=== PATIENT | male | born 1970 | race Caucasian/White ===

== ENCOUNTER 2016-11-29 12:07 | Emergency (ER) | payer OTHER ==
[~2016-11-29] VITALS: Ht 190.5 cm; Wt 102.1 kg
[2016-11-29 12:07] VITALS: BP 164/98
[~2016-11-29 12:07] MED LIST: NOHOMEMEDICATIONS
[2016-11-29] MEDS ORDERED: NORCO 5-325 TA1 EACH PO (12:50)
[2016-11-29] MEDS ORDERED: CIPROFLOXIN HC2.5 M1 OPHTHALMIC (12:52)
== END 2016-11-29 13:04 | disposition home or self-care (01) ==
LOC: ER 12:07
DX: S05.02XA Injury of conjunctiva and corneal abrasion without foreign body, left eye, initial encounter (principal); F17.210 Nicotine dependence, cigarettes, uncomplicated; F10.99 Alcohol use, unspecified with unspecified alcohol-induced disorder; X58.XXXA Exposure to other specified factors, initial encounter; Y93.89 Activity, other specified; Y92.89 Other specified places as the place of occurrence of the external cause; Y99.8 Other external cause status

== ENCOUNTER 2017-01-13 10:47 | Emergency (ER) | payer OTHER ==
[~2017-01-13] VITALS: Ht 190.5 cm; Wt 99.8 kg
[~2017-01-13 10:47] MED LIST changes: +CIPROFLOXIN HC2.5 M1 OPHTHALMIC; +NORCO 5-325 TA1 EACH PO
[2017-01-13] MEDS ORDERED: CIPROFLOXIN HC2.5 M1 OPHTHALMIC (11:43)
[2017-01-13] MEDS ORDERED: ERYTHROMYCIN E3.5 G3 OPHTHALMIC (11:43)
[2017-01-13 12:08] VITALS: BP 148/82
== END 2017-01-13 12:09 | disposition home or self-care (01) ==
LOC: ER 10:47
DX: H16.002 Unspecified corneal ulcer, left eye (principal); F17.210 Nicotine dependence, cigarettes, uncomplicated; F10.99 Alcohol use, unspecified with unspecified alcohol-induced disorder

== ENCOUNTER 2017-10-28 09:46 | Emergency (ER) | payer OTHER ==
[~2017-10-28] VITALS: Ht 190.5 cm; Wt 99.8 kg
[~2017-10-28 09:46] MED LIST changes: +ERYTHROMYCIN E3.5 G3 OPHTHALMIC
== END 2017-10-28 11:37 | disposition home or self-care (01) ==
LOC: ER 09:46
DX: S05.02XA Injury of conjunctiva and corneal abrasion without foreign body, left eye, initial encounter (principal); H10.32 Unspecified acute conjunctivitis, left eye; F17.210 Nicotine dependence, cigarettes, uncomplicated; X58.XXXA Exposure to other specified factors, initial encounter

== ENCOUNTER 2018-12-06 21:32 | Inpatient (IN) | payer OTHER ==
[~2018-12-06] VITALS: Ht 185.4 cm; Wt 68.5 kg
[2018-12-06 22:12] VITALS: BP 118/79
[2018-12-06] MEDS ORDERED: METFORMIN HCL500 MG PO (22:17)
[2018-12-06 22:28] LABS: BE(vivo) 2.1 mmol/L (-2 to +3); HCO3 23.2 mmol/L (22.0-26.0); PCO2 28.9 mmHg (35.0-45.0); PO2 93.7 mmHg (80.0-100.0); pH 7.523 (7.360-7.450); sO2 97.9 % (92.0-98.0)
--- NOTE | 2018-12-06 23:37 | NUR ---
LAB CONTACTED, BLOOD WORK IS THERE
[2018-12-06 23:42] LABS: HEMATOCRIT 54.5 % (42.0-52.0); HEMOGLOBIN 17.9 gm/dL (14.0-18.0); MCH 27.2 pg (26.0-34.0); MCHC 32.9 g/dL (28.0-37.0); MCV 82.7 fL (80.0-100.0); PLATELET COUNT 501 thou/uL (150-400); RBC 6.59 mil/uL (4.50-6.00); RDW 16.1 % (10.5-14.5)
[2018-12-06 23:46] LABS: CALCIUM 9.7 mg/dL (8.5-10.1); CREATININE 3.1 mg/dL (0.7-1.3); POTASSIUM 3.7 mmol/L (3.5-5.1)
[2018-12-06 23:52] LABS: ALBUMIN 4.7 g/dL (3.4-5.0); TOTAL BILIRUBIN 0.9 mg/dL (<0.1-1.0); TOTAL PROTEIN 9.9 g/dL (6.4-8.2)
[2018-12-07] VITALS (17 sets, daily range): BP systolic 116–142; BP diastolic 59–94
[2018-12-07 00:30] LABS: ABSOLUTE NEUTROPHILS 23.3 thou/uL (1.4-8.2)
[2018-12-07 00:31] LABS: LARGE PLATELETS FEW; PLATELET ESTIMATE MARKEDLY INCREASED
[2018-12-07 04:19] LABS: HEMATOCRIT 51.9 % (42.0-52.0); HEMOGLOBIN 17.6 gm/dL (14.0-18.0); MCH 27.7 pg (26.0-34.0); MCHC 33.9 g/dL (28.0-37.0); MCV 81.6 fL (80.0-100.0); RBC 6.35 mil/uL (4.50-6.00); RDW 15.7 % (10.5-14.5); WBC 28.8 thou/uL (4.0-11.0)
[2018-12-07 04:25] LABS: CALCIUM 8.5 mg/dL (8.5-10.1); POTASSIUM 3.7 mmol/L (3.5-5.1)
--- NOTE | 2018-12-07 04:33 | NUR ---
Pt arrived on unit at about 0255. alert and oriented . vital signs stable. pt c/o abdominal pain, nausea and vomiting. denies chest pain or SOA. assessments as documented. zofran and morphine given. Will continue to follow poc.
[2018-12-07 06:34] LABS: URINE BLOOD 2+ (Negative); URINE CLARITY CLOUDY; URINE COLOR YELLOW; URINE GLUCOSE-RANDOM* NEGATIVE (Negative); URINE KETONES 2+ (Negative); URINE LEUKOCYTES-REFLEX NEGATIVE (Negative); URINE NITRITE-REFLEX NEGATIVE (Negative); URINE PROTEIN (DIPSTICK) 2+ (Negative); URINE SPECIFIC GRAVITY >= 1.030 (1.005-1.035); URINE UROBILINOGEN 0.2 E.U./dl (0.2-1.0)
[2018-12-07 06:38] LABS: ICTOTEST (BILI CONFIRMATORY) Negative (Negative); URINE BILIRUBIN NEGATIVE (Negative)
[2018-12-07 06:49] LABS: BACTERIA-REFLEX 1-9 Few /HPF (None Seen); CASTS None Seen /LPF (None Seen); CRYSTALS None Seen /LPF (None Seen); SQUAMOUS 0-3 Few /LPF (0-3); URINE RBC 0-2 Rare /HPF (0-2); URINE WBC-REFLEX None Seen /HPF (0-5)
[2018-12-07 09:06] LABS: MAGNESIUM 1.8 mg/dL (1.8-2.4); PHOSPHORUS 4.9 mg/dL (2.5-4.9)
[2018-12-07 09:07] LABS: CALCIUM 8.6 mg/dL (8.5-10.1); CREATININE 3.7 mg/dL (0.7-1.3); PHOSPHORUS 4.8 mg/dL (2.5-4.9); POTASSIUM 3.7 mmol/L (3.5-5.1)
--- NOTE | 2018-12-07 10:27 | EKG ---
[address] [employer] [place] [address] ELECTROCARDIOGRAM REPORT Name: THOMAS SMILEY Room #: 210-P ADM IN M.R.#: [id number] ������������������ Admission: 12/07/18 ������������������ Attend Phys: Karl Contreras MD Discharge: ������������������ Date of : 70 Report #: [id number] ����������������������������������������������������������������� [id number] THIS REPORT FOR: //name// [facility] ED Test Date: 2018-12-06 Test Time: 22:01:13 Pat Name: THOMAS SMILEY Department: Room: 210 Gender: M Pleater: WG : 1970 Requested By: Thomas Carty Order Number: [id number] MD: Kwabena Nielsen Measurements Intervals Lackey Rate: 107 P: 75 MD: 115 QRS: -37 QRSD: 86 T: 80 QT: 345 QTc: 461 Interpretive Statements Sinus tachycardia Left anterior fascicular block Abnormal R-wave progression, late transition nonspecific ST segment abnormality No previous ECG available for comparison Electronically Signed On 12-07-2018 10:27:18 CDT by Kwabena Nielsen [email or web address] ��������������������������������������������� <ELECTRONICALLY SIGNED> ���������������������������������������� By: Kwabena Nielsen MD, [facility] ��������������������������������������������� 12/07/18 1027 00 00 Kwabena Nielsen MD, FACC /EPI
--- NOTE | 2018-12-07 11:18 | NUR ---
ASSESSMENT CHARTED - MEDS PER EDGARDO - IN TO SEE PATIENT - TRANSFER TO THE ICU ORDERED. PT GIVEN 1000 CC BOLUS ORDERED - PT TO CT SCAN ORDERED. IV X 2 STARTED IN THE LEFT FORARM SO ACCESS AVAIALABLE FOR FLUIDS TO BE STARTED - ACCESS IN RAC WHEN ARM BENT DID NOT ALLOW FOR FLUIDS TO INFUSE. BS THIS AM 270 COVERED PER SLIDING SCALE - 193 AT TIME OF TRANSFER - REPORT CALLED TO LAY IN THE ICU - PT TRANSFERED VIA BED WITH BELONGINGS.
--- NOTE | 2018-12-07 11:20 | NUR ---
REPORT RECEIVED FROM PREVIOUS RN. PT TRANSFERRED PER BED TO ICU #240 TO START DKA PROTOCOL. SEE MARS/LABS/ASSESSMENTS FOR DETAILS. PT ALERT/ORIENTED/COOPERATIVE. NAUSEATED AND RESTLESS IN BED RELATED TO DISCOMFORT. PLACED NG PLACED IN R NARE THEN INITIALLY OBTAINED 3,000CC DARK NG SECRETIONS WITH COFFEE GROUNDS. NAUSEA, DISCOMFORT AND RESTLESS RESOLVED AND EASIER TO BREATHE. SR, ROOM AIR, COLIN PLACED TO MONITOR URINE OUTPUT. DR. HOOD CONSULTED AND PRESENT TO SEE PT. PLAN FOR EGD IN AM.
[2018-12-07 14:27] LABS: ALBUMIN 3.5 g/dL (3.4-5.0); CALCIUM 8.2 mg/dL (8.5-10.1); CREATININE 3.4 mg/dL (0.7-1.3); MAGNESIUM 1.7 mg/dL (1.8-2.4); POTASSIUM 3.2 mmol/L (3.5-5.1)
[2018-12-07 18:49] LABS: ALBUMIN 3.2 g/dL (3.4-5.0); CREATININE 2.9 mg/dL (0.7-1.3); MAGNESIUM 1.6 mg/dL (1.8-2.4); PHOSPHORUS 3.7 mg/dL (2.5-4.9)
[2018-12-07 18:51] LABS: POTASSIUM 2.9 mmol/L (3.5-5.1)
[2018-12-07 20:02] LABS: BE(vivo) 8.2 mmol/L (-2 to +3); HCO3 33.3 mmol/L (22.0-26.0); PCO2 47.2 mmHg (35.0-45.0); PO2 62.9 mmHg (80.0-100.0); pH 7.466 (7.360-7.450); sO2 93.1 % (92.0-98.0)
[2018-12-08] VITALS (19 sets, daily range): BP systolic 96–124; BP diastolic 53–72
--- NOTE | 2018-12-08 00:58 | NUR ---
ASSUMED CARE AT 1900. VSS, AFEBRILE. DENIES PAIN OR NAUSEA. REPEAT ABG'S ORDERED. DR GUERRERO NOTIFIED OF RESULTS. ANION GAP CLOSED. ORDERS TO DC DKA PROTOCOL OBTAINED. FLUIDS ORDERED AND ELECTROLYTE PROTOCOL IMPLEMENTED. BLOOD SUGARS CHECKED Q HOUR. CONTINUES TO DENY NAUSEA. STATES POOR APPETITE, DRINKS AT LEAST A 6 PACK OF BEER EVERY NIGHT. EDUCATION GIVEN REGARDING SMOKING CESSATION AND ALCOHOL WITHDRAWAL WELL DIABETES GIVEN. WILL NEED TO BE GIVEN MORE EDUCATION. VERBALIZED UNDERSTANDING TO WHY HE NEEDS TO CHECK HIS BLOOD SUGARS MORE REGULARLY. RESTING NOW. WILL CONTINUE TO MONITOR.
[2018-12-08 01:10] LABS: GLYCOHEMOGLOBIN (HGB A1C) 6.7 % (4.8-5.6)
[2018-12-08 02:51] LABS: CALCIUM 8.2 mg/dL (8.5-10.1); CREATININE 2.4 mg/dL (0.7-1.3); MAGNESIUM 2.1 mg/dL (1.8-2.4); POTASSIUM 3.6 mmol/L (3.5-5.1)
[2018-12-08 08:17] LABS: ALBUMIN 2.8 g/dL (3.4-5.0); CALCIUM 8.3 mg/dL (8.5-10.1); CREATININE 2.3 mg/dL (0.7-1.3); PHOSPHORUS 3.3 mg/dL (2.5-4.9); POTASSIUM 3.3 mmol/L (3.5-5.1)
[2018-12-08 11:03] LABS: FOLIC ACID 5.4 ng/mL (8.6-58.9)
--- NOTE | 2018-12-08 14:32 | HC ---
[facility] [place] [address] CONSULTATION Name: THOMAS SMILEY Room #: 246-P [facility] IN ..#: [id number] Admission: 12/07/18 ������������������ Attend Phys: Karl Contreras MD Discharge: ������������������ Date of : 70 Report #: [id number] THIS REPORT FOR: //name// CC: Karl Contreras [facility] physician/PCP NO PCP DATE OF SERVICE: 12/07/2018 GASTROINTESTINAL CONSULTATION: REASON FOR CONSULTATION: The patient is a 48-year-old male with sudden onset of nausea, vomiting and evidence of gastric outlet obstruction. HISTORY OF PRESENT ILLNESS: This is a 48-year-old male with major problem is chronic alcohol abuse. He reports that he previously he would consume at least a 12-pack of beer daily. However, several months ago he was diagnosed with diabetes and reduced his consumption of beer to a 6 pack a day. More recently, per his report, due to carbohydrate load, he is using other alcohol beverages, which he continues to take on essentially a daily basis. In addition, the patient reports he has had significant weight loss over the years. He weighed as much as 240 pounds in the past. In 2013, he weighed 185 pounds and most recently was found to weigh 170 pounds. He initially said he was not sure why he lost weight. However, upon further discussion with the patient, he stated often he would not eat dinner and just drink beer. He has been diagnosed with diabetes. However, there is no prior history of pancreatitis. The patient notes that he was in his usual state of health until about 3-4 days ago when he developed nausea and vomiting. His symptoms came on fairly suddenly. He thought he had a flu-like illness. However, he did not have a fever. He tried to ride it out at home yesterday, but by last evening, he was feeling so weak and dizzy. He was not sure he would be able to make it to the hospital, so he presented to the Emergency Room last evening. Evaluation including labs studies revealed a white count at 25,000, which was 28.8 today. Hemoglobin of 17.9, platelet count of 501,000, MCV of 82. He had 93% segmented neutrophils. His sodium was initially 133/134 today, potassium 3.7, chloride of 84. It was initially 77, CO2 of 33, creatinine of 3.7, BUN of 48. Glucose at 272. Lactic acid of 1.8. Liver function studies were normal. Albumin of 4.0. UA shows 2+ protein, 2+ ketones, 2+ blood and no rbc's. He underwent a CT scan of the abdomen and pelvis. Due to his kidney disease, he did not receive IV contrast. He was found to have a markedly distended stomach and proximal duodenum to about the level of superior mesenteric artery. [address] [address] CONSULTATION Name: THOMAS SMILEY Room #: 246-P ADM IN M.R.#: [id number] Admission: 12/07/18 ������������������ Attend Phys: Karl Contreras MD Discharge: ������������������ Date of : 70 Report #: [id number] other abnormalities were identified. He was also noted to have thickening of the transverse colon, left colonic wall thought to possibly represent colitis. The patient denies history of ulcer disease. He denies any trouble swallowing. He denies use of nonsteroidals. He does note the emesis was blackish in color. There was not bright red blood. Stools have been loose on metformin. He reports it was dark, but not bloody or black in appearance. PAST MEDICAL HISTORY: Other than the recent diagnosis of diabetes, he reports he has been in good health. He has not had any previous kidney problems. He does have a cataract. PAST SURGICAL HISTORY: Surgical repair of his right arm after a fracture. ALLERGIES: No known drug allergies. USUAL HOME MEDICATIONS: Metformin 500 mg daily. FAMILY HISTORY: The patient is adopted. SOCIAL HISTORY: Single, but has a roommate. He has been a long-term cigarette smoker. He has recently tried to chew tobacco, but that makes blood sugars worse. Alcohol, as much as a 12 pack per day chronically. He denies use of street drugs or IV needles. PHYSICAL EXAMINATION: GENERAL: The patient is a well-developed, well-nourished male who appears to be a little uncomfortable, but no acute distress. He is lying left side down. VITAL SIGNS: Blood pressure 131/94, pulse of 104. He is afebrile. HEENT: Anicteric. Pupils equal and round. Oropharynx clear. NECK: Supple. CHEST: Clear. HEART: Regular rate and rhythm, normal S1, normal S2. ABDOMEN: Full, but is not rigid or tight. Bowel sounds are decreased. Significant tenderness is not noted. I do not appreciate hepatosplenomegaly. RECTAL: Deferred. EXTREMITIES: Without cyanosis, clubbing, or edema. NEUROLOGIC: Oriented to person, place, time. He moves all 4 extremities well. ASSESSMENT: 1. Gastric outlet obstruction. 2. Alcohol abuse. 3. Diabetes, recent diagnosis. 4. Acute kidney injury, likely secondary to fluid losses with vomiting. 5. Vomiting and possibly hematemesis. [facility] [address] [place] [address] CONSULTATION Name: THOMAS SMILEY Room #: 246-P ADM IN M.R.#: [id number] Admission: 12/07/18 ������������������ Attend Phys: Karl Contreras MD Discharge: ������������������ Date of : 70 Report #: [id number] RECOMMENDATIONS: 1. NG tube placement, which is about to be placed by nursing staff. 2. IV pantoprazole due to possible GI bleeding, will also help decrease gastric secretions. 3. Upper endoscopy likely to be done on Sunday. 4. Discontinuation of alcohol. 5. Agree with empiric antibiotics in view of his leukocytosis. COMMENT: A CT most suggestive of gastric outlet obstruction. Need to consider the possibility of a malignancy, especially with his weight loss. However, a sudden onset is somewhat unusual. I would expect a slow insidious process. Superior mesenteric artery syndrome is also a consideration, especially with his weight loss. However, once again sudden onset of his symptom is somewhat atypical. There is no obvious evidence of mass lesion of the pancreas on this noncontrast CT. ��������������������������������������������� <ELECTRONICALLY SIGNED> ���������������������������������������� By: Phan Sellers MD ��������������������������������������������� 12/08/18 1432 [id number] [id number] Phan Sellers MD /nt
[2018-12-08 15:41] LABS: URINE BILIRUBIN NEGATIVE (Negative); URINE BLOOD NEGATIVE (Negative); URINE CLARITY CLEAR; URINE COLOR YELLOW; URINE GLUCOSE-RANDOM* 1+ (Negative); URINE KETONES TRACE (Negative); URINE LEUKOCYTES TRACE (Negative); URINE NITRITE NEGATIVE (Negative); URINE PROTEIN (DIPSTICK) TRACE (Negative); URINE UROBILINOGEN 0.2 E.U./dl (0.2-1.0)
[2018-12-08 15:46] LABS: URINE CREATININE-RANDOM* 144.3 mg/dL; URINE PROTEIN-RANDOM* 68.8 mg/dL (<11.9)
--- NOTE | 2018-12-08 18:25 | NUR ---
PT REQUESTED NICOTINE PATCH, ADMINISTED PER ORDER. TRANSFERRED FROM ICU #240 TO ICU #236 PER ICU BED. SHIFT SUMMARY: DENIED PAIN, SR/SB, INITIATED CIWA/ALCOHOL WITHDRAW PER DR. Ruth MULLEN'S ORDER. NOTED PT BEGINNING TO EXHIBIT INCREASED RESTLESSNESS/AGITATION/ANXIETY. ATIVAN IV GIVEN SINCE PT NPO AND HAS A NG WITH LARGE AMOUNT BILE GREEN DRAINAGE. REMAINED NPO, EGD CONSENT SIGNED WITH BENEFITS/RISKS DISCUSSED. COLIN WITH ADEQUATE URINE OUTPUT. PT SLOWLY PROGRESSING WITH ATIVAN ADMINISTRATION FOR WITHDRAW.
[2018-12-09] VITALS (22 sets, daily range): BP systolic 104–127; BP diastolic 56–77
--- NOTE | 2018-12-09 06:00 | NUR ---
PT IS AWAKE AND ALERT. CALM AND COOPERATIVE. REMAINS ON ALCHOL WITHDRAWL PROTOCAL. ONLY REQUIRED ONE DOSE OF ATIVAN LAST EVENING. LUNGS CLEAR. SINUS RHYTHM. BATHED. 800 CC UO AND 350 CC BILE NGT DRAINAGE THIS SHIFT. PT PULLED OUT NGT BE ACCIDENT EARLIER. WILL REPLACE NEHA. WILL COMNT TO [facility]
[2018-12-09 06:06] LABS: ABSOLUTE NEUTROPHILS 10.1 thou/uL (1.4-8.2); BASOPHILS 0.3 % (0.0-2.0); EOSINOPHILS 0.1 % (0.0-3.0); HEMATOCRIT 40.5 % (42.0-52.0); MCH 27.2 pg (26.0-34.0); MCHC 32.7 g/dL (28.0-37.0); MCV 82.9 fL (80.0-100.0); MONOCYTES 10.1 % (1.0-8.0); POLYS 82.5 % (36.0-66.0); RBC 4.89 mil/uL (4.50-6.00); RDW 15.9 % (10.5-14.5); WBC 12.2 thou/uL (4.0-11.0)
[2018-12-09 06:17] LABS: ALBUMIN 2.8 g/dL (3.4-5.0); CALCIUM 8.8 mg/dL (8.5-10.1); CREATININE 1.4 mg/dL (0.7-1.3); PHOSPHORUS 1.6 mg/dL (2.5-4.9); POTASSIUM 3.3 mmol/L (3.5-5.1); TOTAL BILIRUBIN 0.6 mg/dL (<0.1-1.0); TOTAL PROTEIN 6.8 g/dL (6.4-8.2)
[2018-12-09 06:23] LABS: HEMOGLOBIN 13.3 gm/dL (14.0-18.0); PLATELET COUNT 224 thou/uL (150-400)
--- NOTE | 2018-12-09 07:00 | NUR ---
#16 FR NGT PLACED IN RIGHT NARE. WILL CONFIRM WITH KUB
--- NOTE | 2018-12-09 15:54 | NUR ---
ASSESSMENT-PT LIVES IN A HOUSE WITH A ROOMMATE. HE SAYS HIS MOM RECENTLY AND HE HAD BEEN TAKING CARE OF HER. 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 PT NOT WORKING AND DOES NOT DRIVE. HE SEES DR CARLOS CHRISTIANSON AT [place]. PT HAS A SISTER IN THE AREA FOR EMERGENCY CONTACT ONLY. 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 NOT SURE WHAT HE WILL NEED TO GO HOME ON FOR HIS DIABETES THOUGH. PT SAYS HE HAS BEEN TO IN THE PAST AND HAS GONE TO [facility] OUTPT [facility] IN THE PAST. SAYS HE HAD STOPPED ALCHOL FOR 3 MONTHS THEN HAD A SET BACK AND STARTED DRINKING A 6 PACK A DAY. SAYS HE REALIZES HE CANNOT DO THIS. HE PLANS TO QUIT SMOKING TOO. PT MAY NEED PRESCRIPTION ASSIST. FOLLOWING TO ASSIST WITH DC PLANNING.
--- NOTE | 2018-12-09 16:22 | NUR ---
PT TAKEN FOR EGD THIS AM, RETURNED AND NG CLAMPED UNTIL UPPER GI SERIES CONCLUDED. NG D/C'D AND PT NOW CLEAR LIQUID DIET, DENIES NAUSEA. CIWA SCORE MAX THIS SHIFT OF 9, LORAZEPAM EFFECTIVE. COLIN CATH REMAINS, MINIMUM TEA COLORED URINE NOTED. IV FLUIDS CHANGED PER NEPHROLOGY. POTASSIUM REPLACED. PT UP TO CHAIR WITH STANDBY ASSIST.
[2018-12-10] VITALS (11 sets, daily range): BP systolic 91–123; BP diastolic 56–72
--- NOTE | 2018-12-10 05:36 | NUR ---
PT SLEEPING OFF/ON. IMPULSIVE AT TIMES. CIGWA 9-13. ATIVAN PRN GIVEN. VSS. VIKASH PO FLUIDS. UO ADEQUATE. NO C/O OF N/V OR ABD DISCOMFORT. CONT TO MONITOR. SEE [id number] FOR COMPLETE ASSESSMENT
[2018-12-10 05:40] LABS: ALBUMIN 2.6 g/dL (3.4-5.0); CALCIUM 8.5 mg/dL (8.5-10.1); CREATININE 1.2 mg/dL (0.7-1.3); MAGNESIUM 1.9 mg/dL (1.8-2.4); PHOSPHORUS 2.2 mg/dL (2.5-4.9)
[2018-12-10 05:49] LABS: POTASSIUM 4.3 mmol/L (3.5-5.1)
--- NOTE | 2018-12-10 13:28 | NUR ---
PATIENT REMAINS A&O X 3-4, PLEASANT AND COOPERATIVE WITH CARES. DENIES PAIN. DENIES NAUSEA OR VOMITING. NO SOB NOTED. PATIENT HEART RATE DOES SOHAIL DOWN INTO THE MID TO UPPER 40'S. AFTER GOING BACK AND LOOKING ON THE MONITOR IT LOOKS IF THIS IS NORMAL FOR THIS PATIENT AND HE TOLERATES IT FINE. CIWAS THIS AM ARE FROM 10-15 AND SEEM TO BE WORSENING. PATIENT IS BECOMING RESTLESS AND FIGITITY. REMAINS PLEASANT AND COOPERATIVE AT THIS TIME. NO FURTHER CONCERNS AT THIS TIME. WILL CONTINUE TO MONITOR AND CARE PER PLAN OF CARE.
--- NOTE | 2018-12-10 16:06 | PATH ---
[facility] [address] [place] [address] PATHOLOGY RPT PROCEDURE Name: THOMAS SMILEY Room #: 236-P [facility] IN M.R.#: [id number] ������������������ Admission: 12/07/18 ������������������ Date of : 70 Discharge: Report #: [id number] Path Case #: [id number] [facility] Accession Number: [id number] . 01 Material submitted: . BX GASTRITIS . 01 Clinical history: . Gastric outlet obstruction Duodenal ulcers, gastric ulcers, severe gastritis, esophagitis Rule out H. pylori . 02 Diagnosis: Gastric mucosa, gastritis rule out H. pylori, endoscopic biopsy: - Mild chronic gastritis. - Negative for intestinal metaplasia or atrophy. - Negative for Helicobacter pylori (properly controlled immunohistochemical stain performed). (IUV:pit 12/10/2018) QTP/12/10/2018 . 02 Electronically signed: . Angelika Romano MD, Pathologist NPI- [id number] . 01 Gross description: . The specimen is received in formalin, labeled "Thomas Smiley BX gastritis" and consists of 3 fragments of arriaza tissue measuring between 0.4 x 0.2 x 0.1 cm and 0.6 x 0.3 x 0.1 cm. They are entirely submitted in A1. (SDY; 12/09/2018) SYU/SYU . 02 Pathologist provided ICD-10: K29.50 . 02 CPT . 834906, W20660 Specimen Comment: A courtesy copy of this report has been sent to Specimen Comment: [phone], . Specimen Comment: Report sent to / DR BECKHAM Performed at: [address] [id number] MD Oneil Braden MD Phone: [phone] Performed at: [address] [id number] [address] [address] PATHOLOGY RPT PROCEDURE Name: SHERICETHOMAS BARCELONETA Room #: 236-P [facility] IN M.R.#: [id number] ������������������ Admission: 12/07/18 ������������������ Date of : 70 Discharge: Report #: [id number] Path Case #: [id number] MD Angelika Romano MD Phone: [phone]
--- NOTE | 2018-12-10 16:37 | P ---
[facility] [place] [address] PROCEDURE REPORT Name: THOMAS SMILEY Room #: 236-P [facility] IN M.R.#: [id number] Admission: 12/07/18 ������������������ Attend Phys: Tonya Granados Discharge: ������������������ Date of : 70 Report #: [id number] THIS REPORT FOR: //name// CC: [facility] physician/PCP Tonya SUAZO PCP DATE OF SERVICE: 12/09/2018 PROCEDURE PERFORMED: Upper endoscopy with biopsies. HISTORY OF PRESENT ILLNESS: The patient is a 48-year-old male who was admitted on 12/07/2018 for nausea, vomiting, weight loss. He has a history of chronic alcohol abuse and diabetes. CT scan of the abdomen and pelvis on admission showed significant dilation of the stomach as well as the proximal duodenum suggesting a possible gastric outlet obstruction. They brought up the possibility of superior mesenteric artery syndrome. He also has a history of hematemesis recently. CT showed possibility of colitis; however, the patient denies any diarrhea or bleeding. He has been placed on antibiotics. He also is being monitored for withdrawal at this time under withdrawal protocol. NG was placed. A large amount of fluid was removed. He denies any abdominal pain or nausea or vomiting this morning. Plan is for EGD for further evaluation. DESCRIPTION OF PROCEDURE: The risks and benefits of the procedure were explained to the patient, those risks including but not limited to bleeding, perforation, the risk of sedation. He understood these risks and gave informed consent. Sedation was given using propofol and ketamine per anesthesia. I left the NG in place during the procedure. Next, using a standard Olympus upper endoscope, the scope was placed in the patient's mouth and advanced under direct vision through the esophagus, stomach and as far as possible near the third portion of the duodenum. The upper esophagus was normal. In the mid to distal esophagus, severe grade D erosive esophagitis was noted throughout this area. There was no active bleeding. In the stomach, several gastric ulcerations were noted in the mid body. No evidence of bleeding. Biopsies were obtained to rule out H. pylori. The nasogastric tube was well positioned in the mid body of the stomach. The gastric antrum was normal. The pylorus was normal and patent. In the duodenal bulb, multiple clean white based ulcers were noted. There was no evidence of bleeding. The first and second portion of the duodenum was normal. I advanced the scope as far as possible what appeared to be near the third portion of the duodenum. No obvious mucosal abnormalities were noted. No obvious extrinsic compression. At this point, again I was only able to advance the scope so far however. At this point, the scope was then withdrawn and the procedure terminated. The patient tolerated the procedure well. IMPRESSION: [facility] [address] [place] [address] PROCEDURE REPORT Name: THOMAS SMILEY Room #: 236-P [facility] IN M.R.#: [id number] Admission: 12/07/18 ������������������ Attend Phys: Tonya Granados Discharge: ������������������ Date of : 70 Report #: [id number] 1. Severe erosive esophagitis, likely secondary to reflux, likely cause of recent hematemesis. No active bleeding at this time. 2. Several gastric ulcerations. No evidence of bleeding. 3. Pylorus was normal. 4. Several ulcerations in the duodenal bulb. No evidence of active bleeding. 5. Scope advanced to near the third portion of the duodenum. No obvious obstruction was noted in this area; however, CT findings may be distal to this area. RECOMMENDATIONS: 1. Await biopsy results. 2. Continue PPI therapy. 3. We will add liquid Carafate at this time. 4. Continue NG suction for now. We will likely clamp the tube and monitor. If there is no significant output, may consider either an upper GI through the NG tube or removing NG and proceeding with an upper GI for further evaluation. Thank you for allowing me to participate in his care. ��������������������������������������������� <ELECTRONICALLY SIGNED> ���������������������������������������� By: Bennie Garrett MD ��������������������������������������������� 12/10/18 1637 1101 0203 Bennie Garrett MD /nt
[2018-12-11] VITALS (12 sets, daily range): BP systolic 109–141; BP diastolic 52–80
--- NOTE | 2018-12-11 05:38 | NUR ---
ASSESSMENT DOCUMENTED.PT RESTED WELL THROUGH THE NIGHT WITHOUT ANY DISTRESS.A/OX4.PT VERY PLEASANT AND CO-OPERATIVE WITH CARES.DENIES NAUSEA OR VOMITING.TOLERATED SOFT FIBER DIET.APPETITE STILL POOR.TOLERATING FLUIDS.VOIDING VIA URINAL,ADEQAUTE UO.ON CIWR PER PROTOCOL,LORAZEPAM GIVEN ONCE SO FAR THIS SHIFT.PT A LITTLE BIT ANXIOUS NOW.NO ACTIVE GI BLEED NOTED OR REPORTED.UP IN A CHAIR AT THIS TIME.DENIES PAIN OR ANY DISTRESS AT THIS TIME.WILL CONT TO MONITOR PER POC.
[2018-12-11 05:59] LABS: ABSOLUTE NEUTROPHILS 6.8 thou/uL (1.4-8.2); BASOPHILS 0.2 % (0.0-2.0); EOSINOPHILS 2.9 % (0.0-3.0); HEMATOCRIT 38.9 % (42.0-52.0); HEMOGLOBIN 12.5 gm/dL (14.0-18.0); LYMPHOCYTES 13.2 % (24.0-44.0); MCHC 32.2 g/dL (28.0-37.0); MCV 83.9 fL (80.0-100.0); MONOCYTES 8.2 % (1.0-8.0); PLATELET COUNT 256 thou/uL (150-400); POLYS 75.5 % (36.0-66.0); RBC 4.64 mil/uL (4.50-6.00); RDW 15.5 % (10.5-14.5); WBC 8.9 thou/uL (4.0-11.0)
[2018-12-11 06:27] LABS: ALBUMIN 2.6 g/dL (3.4-5.0); CALCIUM 8.4 mg/dL (8.5-10.1); CREATININE 1.3 mg/dL (0.7-1.3); MAGNESIUM 1.6 mg/dL (1.8-2.4); PHOSPHORUS 2.8 mg/dL (2.5-4.9); POTASSIUM 4.1 mmol/L (3.5-5.1); TOTAL BILIRUBIN 0.4 mg/dL (<0.1-1.0); TOTAL PROTEIN 6.3 g/dL (6.4-8.2)
--- NOTE | 2018-12-11 11:17 | HC ---
[facility] [place] [address] CONSULTATION Name: THOMAS SMILEY Room #: 236-P [facility] IN M.R.#: [id number] Admission: 12/07/18 ������������������ Attend Phys: Tonya Granados Discharge: ������������������ Date of : 70 Report #: [id number] THIS REPORT FOR: //name// CC: Karl ESCOBAR physician/PCP NO PCP REASON FOR THE CONSULTATION: Acute kidney injury and electrolyte issues. REASON FOR THE PRESENTATION: Abdominal pain. HISTORY OF PRESENT ILLNESS: This is a 48-year-old with history of alcohol abuse who presented to the Emergency Room complaining of abdominal pain. He also reported persistent nausea and vomiting. This started a few days before his presentations. He had some dizziness and lightheadedness associated with that. He is not aware of any previous kidney problems. He was recently diagnosed to have diabetes mellitus. He is not compliant with his medications, but he was started on metformin. He is not aware of nonsteroidal anti-inflammatory medications. He denies any urinary symptoms in the form of frequency, urgency. On presentation to the Emergency Room, he was found to have leukocytosis. He was also to have severe electrolyte derangements with an acute kidney injury and a creatinine of 3.1. He had a total protein of 9.9 and the sodium of 133. CT images revealed severe distention of the stomach. Potential possibility of superior mesenteric artery syndrome was raised on the CT scan. The patient was moved to the ICU where he was started on IV fluid. Creatinine has been trending down appropriately with rectifying all of his electrolyte issues. PAST MEDICAL HISTORY: 1. Alcohol abuse. 2. History of upper extremity plate. 3. Diabetes mellitus. FAMILY HISTORY: None. SOCIAL HISTORY: Marijuana the last 3 months. Continues to smoke. Continues to drink alcohol. ALLERGIES: None. REVIEW OF SYSTEMS: GENERAL: Significant for weakness. CARDIOVASCULAR: No chest pain. PULMONARY: No cough or hemoptysis. GASTROINTESTINAL: As per history of present illness. GENITOURINARY: No frequency and no urgency. NEUROLOGICAL: As per history of present illness. [facility] [place] [address] [place] [address] CONSULTATION Name: SHERICETHOMAS ALISON Room #: 236-[facility] IN M.R.#: [id number] Admission: 12/07/18 ������������������ Attend Phys: Tonya Granados Discharge: ������������������ Date of : 70 Report #: [id number] OUTPATIENT MEDICATIONS: Metformin. PHYSICAL EXAMINATION: GENERAL: He is alert and oriented, significant output through his NG at 3.7 liters. VITAL SIGNS: Blood pressure is 111/60, pulse is 65 and temperature is 37. HEAD AND NECK: Emaciated and cachectic. CARDIOVASCULAR: No rub. CHEST: No crackles. ABDOMEN: Soft. Slight tenderness in the epigastric area. LOWER EXTREMITIES: No edema. LABORATORY DATA: Laboratory values reviewed. White blood cell count is 28,000. Blood gas 7.4. Chemistry: Sodium 134, potassium 3.3, chloride is 94 and carbon dioxide is 35. IMAGING DATA: CT chest reviewed. Chest x-ray, no acute abnormality. ASSESSMENT, IMPRESSION AND PLAN: 1. Acute kidney injury. 2. Gastric outlet obstructions. 3. Diabetes mellitus. 4. Hyponatremia. 5. Metabolic alkalosis. 6. Recently diagnosed diabetes mellitus. 7. All of the patient's symptoms are related to volume depletion. I will send very basic workup. He was initiated on appropriate IV fluid. 8. Electrolytes are being rectified. 9. Gastrointestinal is following. 10. Workup for his abdominal distention is being pursued. 11. Leukocytosis per primary team. 12. Contraction alkalosis expected given his significant NG output. 13. Urine output seems to be adequate. 14. Expect his kidney function to fully recover. ��������������������������������������������� <ELECTRONICALLY SIGNED> ���������������������������������������� By: Rd Robbins MD ��������������������������������������������� 12/11/18 1117 0955 0325 Starla Lee MD /nt
--- NOTE | 2018-12-11 17:20 | NUR ---
ASSUMED CARE AT 0700. PT A&OX4. PT HAS SCORED A 1 ON CWAL ENTIRE SHIFT. 1 FOR AGITATION. PT GETS UP WITH X1 ASSIST. PT HAS UNSTEADY GAIT AT THIS TIME. PT AND OT CONSULTED FOR EVAL AND TREAT THIS SHIFT. SEE NOTES. PT APPEARS ANXIOUS AT TIMES. PT'S DIET WAS ADVANCED THIS AM AND PT ATE MEAL AND HAD GOOD APPETITE. PT IS CONCERNED AND WORRIED ABOUT DISCHARGING HOME ON NEW MEDS. PT STATES HE HAS NO WAY OF PAYING FOR NEW MEDICATIONS. VSS. SEE ASSESSMENTS. PT TRANSFERRED TO ROOM 355. REPORT CALLED TO ALYSSA SALEEM.
[2018-12-12 00:03] VITALS: BP 132/76
[2018-12-12 03:23] VITALS: BP 123/78
--- NOTE | 2018-12-12 04:07 | NUR ---
PATIENT IS ALERT AND ORIENTED. PATIENT IS UP AD DARIUSZ. PATIENT WAS SMOKING IN ROOM. NURSE EDUCATED PATIENT AND SENT CIGARETTES TO SECURITY. PATIENT DENIES PAIN. SCORED A ONE ON CIWA FOR ANXIETY. PATIENT IS NSR ON TELE. PATIENTS LBM WAS THE 1ST. PATIENT IS RESTING COMFORTABLY IN BED. WCM. PATIENT PROGRESSING TO GOALS
[2018-12-12 07:38] VITALS: BP 119/78
[2018-12-12 11:30] VITALS: BP 127/74
[2018-12-12] MEDS ORDERED: CIPRO500 MG PO (12:22)
[2018-12-12] MEDS ORDERED: METRONIDAZOLE500 M4 PO (12:22)
[2018-12-12] MEDS ORDERED: LANTUS100 UNIT/M SUBQ (12:22)
[2018-12-12] MEDS ORDERED: PANTOPRAZOLE SO40 M1 PO (12:22)
[2018-12-12] MEDS ORDERED: CARAFATE 11 GM/10 M1 PO (12:22)
[2018-12-12] MEDS ORDERED: NOVOLOG100 UNIT/1 SUBQ (12:22)
[2018-12-12] MEDS ORDERED: NICOTINE TRANSD21 M1 TRANSDERM (12:22)
[2018-12-12] MEDS ORDERED: VITAMIN B-1100 M2 PO (12:22)
[2018-12-12] MEDS ORDERED: MULTIVITAMINS1 EAC7 PO (12:22)
[2018-12-12 14:42] VITALS: BP 127/74
[2018-12-12 14:44] VITALS: BP 127/74
--- NOTE | 2018-12-12 14:49 | NUR ---
DISCHARGE NOTE: MILENA reviewed chart and spoke with nursing and attending physician. Pt was transferred to 3 from ICU and is medically stable for discharge home today. Pt does not have health insurance and will needs assistance with medications. Scripts written. Pt's nurse called scripts into [facility]. SW spoke with pharmacist. Awaiting total for medications. SW attempted to meet with pt at bedside. GI seeing pt. MILENA will follow up and provide pt with Health Resource Guide and prescription discount card. MILENA is following to assist as needed with discharge planning.
--- NOTE | 2018-12-12 14:58 | NUR ---
ORDER REC'D FOR OT EVAL AND TREAT. PATIENT WAS EVALUATED BY OT YESTERDAY 12/11/18 AND DISCHARGED DUE TO NOT REQUIRING OT. NO CHANGES NOTED.
--- NOTE | 2018-12-12 16:27 | NUR ---
Assumed care of patient at 0700. Vitals have been stable. Patient alert and oriented x4. Denies pain or SOB. Mild anxiety and withdrawal symptoms. Ativan given x1 with good effect. CIWA as charted. Patient with steady gait, up ad cristine in room. Shower today. Walking hallways. States feels good today and is ready to DC home. Discharge orders received. Patient provided with education regarding follow up appointments, discharge instructions, new prescriptions. Educated on insulin use and provided with diabetic education and materials. Validation Scientist came to see patient and provided with written education regarding carb control and fiber restricted diet. Case management also provided patient with information regarding discharge and resources to use. Patient verbalized understanding of discharge instructions. IV and telemetry discontinued. Belongings from security returned to patient. Belongings gathered in room. Transported to outpatient pharmacy to knot picker cloth prescriptions and then to private vehicle via wheelchair to DC home.
== END 2018-12-12 16:30 | disposition home or self-care (01) | DRG 380 ==
LOC: ER 21:32 → ICU 12-07 01:54 → EROBS 12-07 01:54 → 2N 12-07 02:48 → ICU 12-07 11:22 → 3W 12-11 17:13 → ENTRNSPT 12-12 16:14 → 3W 12-12 16:30
PROVIDERS: Emergency Medicine; Hospitalist; Internal Medicine; Internal Medicine Nephrology; Nurse Practitioner Family; ADMIT Hospitalist
PROC: 0D9670Z Drainage of Stomach with Drainage Device, Via Natural or Artificial Opening (ICD-10-PCS; principal; 2018-12-07)
PROC: 0DB68ZX Excision of Stomach, Via Natural or Artificial Opening Endoscopic, Diagnostic (ICD-10-PCS; 2018-12-09)
DX: K22.10 Ulcer of esophagus without bleeding (principal); E11.10 Type 2 diabetes mellitus with ketoacidosis without coma; E43 Unspecified severe protein-calorie malnutrition; G92 Toxic encephalopathy; A09 Infectious gastroenteritis and colitis, unspecified; N17.9 Acute kidney failure, unspecified; K31.1 Adult hypertrophic pyloric stenosis; E87.1 Hypo-osmolality and hyponatremia; E87.3 Alkalosis; E87.4 Mixed disorder of acid-base balance; K55.1 Chronic vascular disorders of intestine; Z68.1 Body mass index [BMI] 19.9 or less, adult; K25.9 Gastric ulcer, unspecified as acute or chronic, without hemorrhage or perforation; K26.9 Duodenal ulcer, unspecified as acute or chronic, without hemorrhage or perforation; F10.10 Alcohol abuse, uncomplicated; E11.65 Type 2 diabetes mellitus with hyperglycemia; F12.90 Cannabis use, unspecified, uncomplicated; F17.210 Nicotine dependence, cigarettes, uncomplicated; D72.829 Elevated white blood cell count, unspecified; E88.89 Other specified metabolic disorders; E87.6 Hypokalemia; E83.39 Other disorders of phosphorus metabolism; Z71.41 Alcohol abuse counseling and surveillance of alcoholic; Z98.49 Cataract extraction status, unspecified eye; Z79.899 Other long term (current) drug therapy
CPT/HCPCS: 10078; 10879; 62110; 62900; 70005

== ENCOUNTER 2019-04-18 17:16 | Emergency (ER) | payer OTHER ==
[~2019-04-18] VITALS: Ht 190.5 cm; Wt 72.6 kg
[~2019-04-18 17:16] MED LIST changes: +CARAFATE 11 GM/10 M1 PO; +CIPRO500 MG PO; +LANTUS100 UNIT/M SUBQ; +METFORMIN HCL500 MG PO; +METRONIDAZOLE500 M4 PO; +MULTIVITAMINS1 EAC7 PO; +NICOTINE TRANSD21 M1 TRANSDERM; +NOVOLOG100 UNIT/1 SUBQ; +PANTOPRAZOLE SO40 M1 PO; +VITAMIN B-1100 M2 PO
[2019-04-18 18:27] LABS: ABSOLUTE NEUTROPHILS 4.2 thou/uL (1.4-8.2); BASOPHILS 1.4 % (0.0-2.0); EOSINOPHILS 4.7 % (0.0-3.0); HEMATOCRIT 32.2 % (42.0-52.0); HEMOGLOBIN 10.9 gm/dL (14.0-18.0); LYMPHOCYTES 17.4 % (24.0-44.0); MCH 30.7 pg (26.0-34.0); MCV 90.5 fL (80.0-100.0); MONOCYTES 5.2 % (1.0-8.0); PLATELET COUNT 339 thou/uL (150-400); POLYS 71.3 % (36.0-66.0); RBC 3.56 mil/uL (4.50-6.00); WBC 5.9 thou/uL (4.0-11.0)
[2019-04-18 18:30] LABS: ANION GAP 8 mmol/L (7-16); BUN 25 mg/dL (7-18); CHLORIDE 101 mmol/L (98-107); CO2 28 mmol/L (21-32); CREATININE 1.1 mg/dL (0.7-1.3); GLUCOSE 135 mg/dL (74-106); POTASSIUM 4.5 mmol/L (3.5-5.1); SODIUM 137 mmol/L (136-145)
[2019-04-18 18:38] LABS: TROPONIN-I <0.06 ng/mL (<0.06)
[2019-04-18 19:10] LABS: SALICYLATE < 2.8 mg/dL (2.8-20.0)
[2019-04-18 19:26] LABS: AMP/METHAMP Negative (Negative); BARBITURATES Negative (Negative); BENZODIAZEPINES POSITIVE (Negative); COCAINE POSITIVE (Negative); METHADONE Negative (Negative); OPIATES Negative (Negative); PCP Negative (Negative)
[2019-04-18 22:32] VITALS: BP 131/53
--- NOTE | 2019-04-19 10:55 | EKG ---
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 : 1970 Requested By: Thomas Carty Order Number: [id number] MD: Naldo Reilly Measurements Intervals [place] Rate: 59 P: 74 LA: 164 QRS: 0 QRSD: 102 T: 38 QT: 476 QTc: 472 Interpretive Statements Sinus rhythm Compared to ECG 12/06/2018 22:01:13 Sinus tachycardia no longer present Left anterior fascicular block no longer present ST (T wave) deviation no longer present Electronically Signed On 04-19-2019 10:55:13 CDT by Naldo Reilly [email or web address] <ELECTRONICALLY SIGNED> By: Naldo Reilly MD 04/19/19 1055 [id number] 1734 MD CASPER Robledo
== END 2019-04-18 22:48 | disposition home or self-care (01) ==
LOC: ER 17:16
PROVIDERS: Emergency Medicine
DX: T40.2X1A Poisoning by other opioids, accidental (unintentional), initial encounter (principal); E11.9 Type 2 diabetes mellitus without complications; Y92.89 Other specified places as the place of occurrence of the external cause

== ENCOUNTER 2019-09-22 16:26 | Emergency (ER) | payer OTHER ==
[~2019-09-22] VITALS: Ht 190.5 cm; Wt 81.7 kg
[2019-09-22] MEDS ORDERED: METFORMIN HCL500 M3 PO (17:16)
[2019-09-22] MEDS ORDERED: TOBRAMYCIN SULFA5 M1 OPHTHALMIC (17:32)
[2019-09-22 17:38] VITALS: BP 124/67
== END 2019-09-22 17:51 | disposition home or self-care (01) ==
LOC: ER 16:26
DX: H18.892 Other specified disorders of cornea, left eye (principal); E11.9 Type 2 diabetes mellitus without complications; F17.210 Nicotine dependence, cigarettes, uncomplicated; Z79.4 Long term (current) use of insulin

== ENCOUNTER 2020-06-27 19:02 | Emergency (ER) | payer OTHER ==
[~2020-06-27] VITALS: Ht 190.5 cm; Wt 111.1 kg
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
[~2020-06-27 19:02] MED LIST changes: +METFORMIN HCL500 M3 PO; +TOBRAMYCIN SULFA5 M1 OPHTHALMIC
[2020-06-27 21:39] VITALS: BP 111/56
== END 2020-06-27 21:47 | disposition home or self-care (01) ==
LOC: ER 19:02
DX: S43.101A Unspecified dislocation of right acromioclavicular joint, initial encounter (principal); T40.2X1A Poisoning by other opioids, accidental (unintentional), initial encounter; E11.9 Type 2 diabetes mellitus without complications; F17.210 Nicotine dependence, cigarettes, uncomplicated; X58.XXXA Exposure to other specified factors, initial encounter; Y93.89 Activity, other specified; Y92.89 Other specified places as the place of occurrence of the external cause; Y99.8 Other external cause status

== ENCOUNTER 2020-07-29 18:39 | Emergency (ER) | payer OTHER ==
[~2020-07-29] VITALS: Ht 185.4 cm; Wt 81.7 kg
[2020-07-29] MEDS ORDERED: NARCAN4 MG NARES (19:17)
[2020-07-29 19:24] VITALS: BP 102/51
--- NOTE | 2020-07-30 11:57 | EKG ---
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
== END 2020-07-29 19:33 | disposition home or self-care (01) ==
LOC: ER 18:39
DX: T40.2X1A Poisoning by other opioids, accidental (unintentional), initial encounter (principal); E11.9 Type 2 diabetes mellitus without complications; F17.210 Nicotine dependence, cigarettes, uncomplicated; Y92.89 Other specified places as the place of occurrence of the external cause

== ENCOUNTER 2021-04-11 21:58 | Emergency (ER) | payer OTHER ==
[~2021-04-11] VITALS: Ht 190.5 cm; Wt 81.7 kg
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
[~2021-04-11 21:58] MED LIST changes: +NARCAN4 MG NARES
[2021-04-11] MEDS ORDERED: METFORMIN HCL500 M3 PO (22:15)
[2021-04-11] MEDS ORDERED: LORAZEPAM 0.50.5 MG PO (22:15)
[2021-04-11] MEDS ORDERED: FISH OIL 1,2001 EAC3 PO (22:16)
[2021-04-11 23:09] LABS: ABSOLUTE NEUTROPHILS 11.1 thou/uL (1.4-8.2); BASOPHILS 0.8 % (0.0-2.0); EOSINOPHILS 3.4 % (0.0-3.0); HEMATOCRIT 34.9 % (42.0-52.0); HEMOGLOBIN 11.5 gm/dL (14.0-18.0); LYMPHOCYTES 8.8 % (24.0-44.0); MCH 30.2 pg (26.0-34.0); MCHC 32.8 g/dL (28.0-37.0); MONOCYTES 6.9 % (1.0-8.0); PLATELET COUNT 275 thou/uL (150-400); POLYS 80.1 % (36.0-66.0); RBC 3.79 mil/uL (4.50-6.00); RDW 15.1 % (10.5-14.5); WBC 13.9 thou/uL (4.0-11.0)
[2021-04-11 23:18] LABS: CALCIUM 8.4 mg/dL (8.5-10.1); POTASSIUM 4.5 mmol/L (3.5-5.1)
[2021-04-12] MEDS ORDERED: NORCO5 PO (02:06)
[2021-04-12 03:34] VITALS: BP 117/52
== END 2021-04-12 03:38 | disposition home or self-care (01) ==
LOC: ER 21:58
PROVIDERS: Emergency Medicine
DX: S43.004A Unspecified dislocation of right shoulder joint, initial encounter (principal); E11.9 Type 2 diabetes mellitus without complications; F17.210 Nicotine dependence, cigarettes, uncomplicated; Z79.899 Other long term (current) drug therapy; V17.0XXA Pedal cycle driver injured in collision with fixed or stationary object in nontraffic accident, initial encounter; Y93.19 Activity, other involving water and watercraft; Y92.481 Parking lot as the place of occurrence of the external cause; Y99.8 Other external cause status

== ENCOUNTER 2021-09-02 14:19 | Emergency (ER) | payer OTHER ==
[~2021-09-02] VITALS: Ht 190.5 cm; Wt 83.9 kg
[~2021-09-02 14:19] MED LIST changes: +FISH OIL 1,2001 EAC3 PO; +LORAZEPAM 0.50.5 MG PO; +NORCO5 PO
[2021-09-02] MEDS ORDERED: NORCO7.5 PO (16:07)
[2021-09-02 16:25] VITALS: BP 137/95
== END 2021-09-02 16:35 | disposition home or self-care (01) ==
LOC: ER 14:19
DX: S42.291A Other displaced fracture of upper end of right humerus, initial encounter for closed fracture (principal); E11.9 Type 2 diabetes mellitus without complications; F17.210 Nicotine dependence, cigarettes, uncomplicated; Z79.899 Other long term (current) drug therapy; Z79.84 Long term (current) use of oral hypoglycemic drugs; W18.30XA Fall on same level, unspecified, initial encounter; Y93.89 Activity, other specified; Y92.89 Other specified places as the place of occurrence of the external cause; Y99.8 Other external cause status